=== PATIENT | male | born 1945 | race Asian ===

== ENCOUNTER 2018-12-02 14:01 | Emergency (ER) | payer MEDICARE, MEDICAID ==
[~2018-12-02] VITALS: Ht 172.7 cm; Wt 74.8 kg
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
[2018-12-02] MEDS ORDERED: NAPR-915 PO (15:51)
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
[2018-12-02 16:37] VITALS: BP 154/90
== END 2018-12-02 16:37 | disposition home or self-care (01) ==
LOC: ER 14:04
DX: S16.1XXA Strain of muscle, fascia and tendon at neck level, initial encounter (principal); S40.012A Contusion of left shoulder, initial encounter; V49.49XA Driver injured in collision with other motor vehicles in traffic accident, initial encounter
CPT/HCPCS: 70450; 71045; 72125; 73030; 73060; 73080